=== PATIENT | male | born 1960 | race Two or more races ===

== ENCOUNTER → 2018-11-13 | Outpatient (CLI) | payer BC ==
[2018-11-13 17:44] LABS: HGB 15.6 gm/dL (13.0-17.5); MCH 31.5 pg (25.0-35.0); MCHC 31.8 g/dL (31.0-37.0); MCV 99.1 fL (80.0-100.0); Mean Platelet Volume 7.4; Platelet Count 319 k/uL (150-450); RBC 4.94 m/uL (4.30-5.90); RDW 13.3 % (11.5-15.5); WBC 10.3 k/uL (3.8-10.6)
== END | disposition home or self-care (01) ==
LOC: LABPAT 17:22
PROVIDERS: ATTEND Internal Medicine Clinical Cardiac Electrophysiology
DX: Z01.812 Encounter for preprocedural laboratory examination (principal); I48.0 Paroxysmal atrial fibrillation
CPT/HCPCS: 80051; 82565; 82947; 84520; 85027

== ENCOUNTER 2018-11-24 08:44 | Observation (INO) | payer BC ==
[~2018-11-24 08:44] MED LIST: LACTATED RINGERS 1,000 ML IV SCH; SODIUM CHLORIDE 0.9% 1,000 ML IV SCH
[2018-11-24] MEDS ORDERED: SUCCINYLCHOLINE CHLORIDE 100 MG/5 ML SYR IV ONE (10:22)
[2018-11-24] MEDS ORDERED: MIDAZOLAM 2 MG/2 ML VIAL ONE (10:22)
[2018-11-24] MEDS ORDERED: ePHEDrine SULFATE/0.9% NACL/PF 50 MG/5 ML SYRINGE IV ONE (10:22)
[2018-11-24] MEDS ORDERED: PROTAMINE SULFATE 10 MG/ML 5 ML VIAL IV ONE (10:22)
[2018-11-24] MEDS ORDERED: LIDOCAINE 1% INJ 10MG/ML (20 ML MDV) ONE (10:22)
[2018-11-24] MEDS ORDERED: PHENYLEPHRINE-0.9% NACL SYG 1 MG/10 ML SYRINGE ONE (10:22)
[2018-11-24] MEDS ORDERED: fentaNYL (PF) 50 MCG/ML 2 ML AMP ONE (10:22)
[2018-11-24] MEDS ORDERED: PROPOFOL 10 MG/ML 20 ML VIAL IV ONE (10:22)
[2018-11-24] MEDS ORDERED: HEPARIN SODIUM,PORCINE 5,000 UNIT/ML 1 ML VIAL ONE (10:22)
[2018-11-24] MEDS ORDERED: SODIUM CHLORIDE 0.9% 1,000 ML IV ONE (10:49)
[2018-11-24] MEDS ORDERED: LIDOCAINE 1% INJ 10MG/ML (20 ML MDV) SQ ONE (11:11)
[2018-11-24] MEDS ORDERED: HEPARIN SOD,PORK IN 0.45% NACL 25,000 UNIT in 0.45% NACL 1 250ML.BAG IV ONE (11:13)
[2018-11-24] MEDS ORDERED: LACTATED RINGERS 1,000 ML IV ONE (13:30)
[2018-11-24] MEDS ORDERED: HYDROcodone/APAP 5-325MG 1 EACH TAB PO PRN (13:33)
[2018-11-24] MEDS ORDERED: ACETAMINOPHEN TAB 325 MG TAB PO PRN (13:33)
[2018-11-24] MEDS ORDERED: IOPAMIDOL-370 100ML BTL INJ ONE (13:38)
--- NOTE | 2018-11-24 13:52 | P.PCN ---
Preoperative Diagnosis: Diagnosis Atrial fibrillation, symptomatic, refractory to therapy, refractory to flecainide Persistent atrial fibrillation Result Successful pulmonary vein isolation of all veins using cryo-ablation Complete entrance block in all 4 veins confirmed No evidence for phrenic nerve injury Ablation of the left atrial roof, roofline Esophageal deflection YES Residual rapid atrial tachycardia, organized, cycle length 171 ms following successful pulmonary vein isolation and roofline Electrical cardioversion with a synchronized shock across the chest YES Procedure details Patient was brought to the EP lab in a fasting state. Written informed consent was obtained prior to the procedure. Procedure performed under general anesthesia After initial muscle relaxant use, muscle relaxants were not given thereafter in order to assess phrenic nerve during procedure. Patient prepped and draped as per protocol Full cryo-set up with standard preparation of the cryoablation tools done. Femoral Venous access obtained on the right and left groins Venous and arterial Sheaths placed. Diagnostic catheters for the high right atrium, phrenic nerve stimulation and pacing, His bundle, RV and coronary sinus placed Intracardiac echo catheter placed. Long sheath placed in the right atrium Left and right transseptal catheterization performed under intracardiac echo guidance. Intravenous heparin with aCT above 300 Later, catheter positioning and balloon positioning in the left atrium, under intracardiac echo guidance Baseline measurements QRS 91 ms QT 373 ms Patient came in atrial fibrillation. CS electrograms were disorganized. Rapid tachycardia in the left atrium outside the pulmonary veins Following successful isolation of all 4 pulmonary veins as well as left atrial roof there was old immunization to a rapid tachycardia with a cycle length of about 171 ms Transseptal catheterization performed RA pressure 6/11/13 LA pressure 26/12/19 Transseptal catheterization performed with standard sheath. The cryoablation sheath was then placed with an over the wire exchange without any acute complications. All 4 pulmonary veins were isolated in the following sequence: Left superior followed by left inferior followed by right superior followed by right inferior The cryo-ablation balloon was placed at the os of each vein 1.5 mL of IV dye was injected to confirm an occluded vein Goal during cryoablation was to achieve complete occlusion of the pulmonary vein , achieve -30C at 30 seconds and achieve -40C at 60 seconds and a time to affect of less than 60-90 seconds, . If not the balloon was repositioned to obtain this result After completion of Cryoblation with durations from 180-240 seconds, entrance block was confirmed with the Attain circular catheter in a roving fashion around the antrum of the pulmonary veins Phrenic nerve pacing was performed from the SVC, right innominate vein area and diaphragm voltage was monitored. Diaphragmatic contractions were also monitored manually for strength of contraction. Parameter goals for each cryo freeze -30 C by 30 seconds -40 degrees C by 60 seconds Minimum between minus 40-55C Thaw time greater than 10 seconds Balloon visualized by intracardiac echo The esophagus was intubated. Esophageal Temperature monitoring with a CIRCA catheter formed. Esophageal deflection for hypothermia of the esophagus below 32C Large, and left pulmonary venous os Left superior pulmonary vein 2 cryo lesions 3 minutes followed by 2 minutes Complete isolation of the left superior pulmonary vein in less than 60 seconds with the prescribed lesion The second cryo lesion was given because this was a very large vein with a very large, common ostium Left inferior pulmonary vein Cryoablation 2 cryo lesions given 3 minutes followed by 2 minutes. Complete isolation of the pulmonary vein Right superior pulmonary vein, during phrenic nerve pacing Cryoablation of 3 minutes, 100 seconds and 95 seconds to completely isolate the pulmonary vein at the ostium 2 additional cryo lesions of 90 seconds each in the roof, between the right superior and left superior veins Right inferior pulmonary vein, during phrenic nerve pacing 3 minute cryoablation with deflection of the esophagus The previous cryoablation lesion was aborted in 39 seconds because of a rapid drop in esophageal temperatures At the end of the procedure the Achieve catheter was once again used to check for entrance block Phrenic nerve stimulation was performed to confirm diaphragmatic stimulation the end of the procedure Cine fluoroscopy was performed at the very end of the procedure to confirm movement of both diaphragms with inspiration and expiration At the end of the procedure the patient was extubated Heparin was reversed Venous sheaths were removed and hemostasis assured Procedures performed (PVI - CRYO Ablation) Comprehensive diagnostic EP study CS pacing and recording Left and right transseptal catheterization Catheter the mapping of the tachycardia (NOT 3D mapping) Intracardiac echocardiography Pulmonary vein isolation with transseptal and comprehensive EPS, 75161 Additional left-sided atrial ablation, 78398 Electrical cardioversion with a synchronized shock across the chest 76672 Anesthesia: GETA
[2018-11-24] MEDS ORDERED: ACETAMINOPHEN IV (For NPO) 1,000 MG in EMPTY BAG 1 BAG IVPB ONE (14:00)
[2018-11-24] MEDS ORDERED: PANTOPRAZOLE 40 MG TABLET PO SCH (14:00)
[2018-11-24 15:11] VITALS: BMI 29.1
[2018-11-24] MEDS ORDERED: MORPHINE SULFATE 4 MG/ML SYRINGE IVP STA (15:32)
[2018-11-24] MEDS ORDERED: ONDANSETRON 4 MG/2 ML VIAL IVP PRN (18:03)
[2018-11-24] MEDS: COLCHICINE 0.6 MG EACH PO SCH (19:54)
[2018-11-24] MEDS: APIXABAN 5 MG TAB PO SCH (19:54)
[2018-11-24] MEDS: FLECAINIDE 50 MG TAB PO SCH (19:54)
[2018-11-25 03:49] VITALS: TEMP 98.1
[2018-11-25 07:28] VITALS: RESP 18
[2018-11-25] MEDS: FLECAINIDE 50 MG TAB PO SCH (07:43)
[2018-11-25] MEDS: APIXABAN 5 MG TAB PO SCH (07:43)
[2018-11-25] MEDS: COLCHICINE 0.6 MG EACH PO SCH (07:44)
[2018-11-25] MEDS ORDERED: DILTIAZEM CD 120 MG CAP.ER.24H PO SCH (09:00)
--- NOTE | 2018-11-25 10:17 | P.DS ---
Providers Date of admission: 11/24/18 22:59 Attending physician: Santosh Bautista Primary care physician: Devang Villar [facility] Course: Patient is doing well. Exam ablating in the hallways as well as in his room. I removed his sutures and examined his groins. He has minimal tenderness in the groins minimal swelling and no bruits on either side and is ambulating comfortably without any pain No chest discomfort dizziness lightheadedness or palpitations Twelve-lead ECG shows sinus rhythm normal ST segments Blood pressure 116/72 mmHg Normal heart sounds Normal breath sounds Impression Persistent atrial fibrillation status post successful isolation of all 4 pulmonary veins Electrical cardioversion for atrial tachycardia Suggest Stop metoprolol. Patient is intolerant to metoprolol Continue diltiazem long-acting Continue flecainide 100 mg twice daily Follow Dr. Olivarez within a week Continue anticoagulation Plan - Discharge Summary Discharge Rx Participant: No New Discharge Prescriptions: New Flecainide [Tambocor] 100 mg PO Q12HR #180 tab Discontinued Metoprolol Succinate [Toprol Xl] 25 mg PO BID No Action Apixaban [Eliquis] 5 mg PO BID Esomeprazole Magnesium [NexIUM 24Hr] 20 mg PO Q48H Diltiazem HCl [Cardizem] 120 mg PO QAM Discharge Medication List Apixaban [Eliquis] 5 mg PO BID 11/20/18 [History] Diltiazem HCl [Cardizem] 120 mg PO QAM 11/20/18 [History] Esomeprazole Magnesium [NexIUM 24Hr] 20 mg PO Q48H 11/20/18 [History] Flecainide [Tambocor] 100 mg PO Q12HR #180 tab 11/25/18 [Rx] Follow up Appointment(s)/Referral(s): Shonna Olivarez MD [STAFF PHYSICIAN] - 1 Week Activity/Diet/Wound Care/Special Instructions: Post EP study - Ablation instructions 1. Keep access sites dry for 2 days. 2. No heavy lifting or straining for 2 days. 3. Avoid bending the hips repeatedly for 2 days. 4. You may go up and down stairs slowly Call if the following is noted 1. Bleeding, increasing swelling or pain at the access sites. 2. Increasing chest discomfort, especially upon taking a deep breath. 3. Increasing shortness of breath, at rest or with exertion. 4. Undue cough / phlegm 5. Difficulty or pain while swallowing. 6. Pain or change in color in the extremities. 7. Fever, chills, rigors. 8. Increasing headache or neurologic symptoms. 9. Dizziness, fainting, palpitations Continue ELIQUIS 5 mg twice daily Flecainide 100 mg twice daily Continue diltiazem Stop metoprolol
[2018-11-25 11:37] VITALS: BP 129/85; PULSE 101
== END 2018-11-25 14:34 | disposition home or self-care (01) ==
LOC: CATHEP 08:44 → 1SOBS 13:27 → CATHEP 23:22
PROVIDERS: ADMIT Internal Medicine Clinical Cardiac Electrophysiology; ATTEND Internal Medicine Clinical Cardiac Electrophysiology
DX: I48.1 Persistent atrial fibrillation (principal); Z79.01 Long term (current) use of anticoagulants; Z79.899 Other long term (current) drug therapy; K21.9 Gastro-esophageal reflux disease without esophagitis; I47.1 Supraventricular tachycardia
CPT/HCPCS: 85347; 93662; 93609; 93656; 92960; G0378 ×2; C1769 ×4; C1894 ×3; C1730 ×2; C1759; C1893; C1733; C1766; J2250; J2720; J2270; J1644 ×2; J2405; J2001; J3010; J0131; J2370; J0330; J2704; Q9967

== ENCOUNTER → 2019-01-29 | Outpatient (CLI) | payer BC ==
[2019-01-29 17:31] LABS: Basophils % (A) 1 %; Eosinophils # (A) 0.3 k/uL (0-0.7); Eosinophils % (A) 3 %; HCT 46.2 % (39.0-53.0); HGB 14.9 gm/dL (13.0-17.5); Lymphocytes # (A) 3.6 k/uL (1.0-4.8); Lymphocytes % (A) 44 %; MCH 29.7 pg (25.0-35.0); MCHC 32.4 g/dL (31.0-37.0); MCV 91.8 fL (80.0-100.0); Monocytes # (A) 0.7 k/uL (0-1.0); Monocytes % (A) 9 %; Neutrophils # (A) 3.4 k/uL (1.3-7.7); Neutrophils % (A) 41 %; Platelet Count 279 k/uL (150-450); RBC 5.03 m/uL (4.30-5.90); RDW 14.5 % (11.5-15.5); WBC 8.3 k/uL (3.8-10.6)
[2019-01-29 17:42] LABS: Potassium 4.7 mmol/L (3.5-5.1)
== END | disposition home or self-care (01) ==
LOC: LABPAT 16:29
PROVIDERS: ATTEND Internal Medicine Clinical Cardiac Electrophysiology
DX: Z01.812 Encounter for preprocedural laboratory examination (principal); I48.1 Persistent atrial fibrillation; I48.3 Typical atrial flutter
CPT/HCPCS: 80051; 82565; 82947; 84520; 85025

== ENCOUNTER 2019-02-08 10:25 | Day surgery (SDC) | payer BC ==
[2019-02-08] MEDS: SODIUM CHLORIDE 0.9% 1,000 ML IV SCH (10:38)
[2019-02-08] MEDS ORDERED: fentaNYL (PF) 50 MCG/ML 2 ML AMP ONE (12:47)
[2019-02-08] MEDS ORDERED: PHENYLEPHRINE-0.9% NACL SYG 1 MG/10 ML SYRINGE ONE (12:47)
[2019-02-08] MEDS ORDERED: GLYCOPYRROLATE 0.2 MG/ML 2 ML VIAL ONE (12:47)
[2019-02-08] MEDS ORDERED: PROPOFOL 10 MG/ML 20 ML VIAL IV ONE (12:47)
[2019-02-08] MEDS ORDERED: ROCURONIUM BROMIDE 10 MG/ML 10 ML VIAL IV ONE (12:47)
[2019-02-08] MEDS ORDERED: NEOSTIGMINE 1 MG/ML 10 ML VIAL ONE (12:47)
[2019-02-08] MEDS ORDERED: ISOPROTERENOL 250 MCG/1.25 ML SYR IV ONE (12:47)
[2019-02-08] MEDS ORDERED: SUCCINYLCHOLINE CHLORIDE 100 MG/5 ML SYR IV ONE (12:47)
[2019-02-08] MEDS ORDERED: LIDOCAINE 1% INJ 10MG/ML (20 ML MDV) ONE (12:47)
[2019-02-08] MEDS ORDERED: MIDAZOLAM 2 MG/2 ML VIAL ONE (12:47)
[2019-02-08] MEDS ORDERED: LIDOCAINE 1% INJ 10MG/ML (20 ML MDV) SQ ONE (13:15)
[2019-02-08] MEDS ORDERED: HEPARIN SODIUM (1,000 UNIT/ML) 1,000 UNIT in SODIUM CHLORIDE 0.9% 1,000 ML IRRIGATION ONE (13:30)
[2019-02-08] MEDS ORDERED: SODIUM CHLORIDE 0.9% 500 ML 500 ML IV ONE (13:48)
[2019-02-08] MEDS ORDERED: SODIUM CHLORIDE 0.9% 250 ML IV ONE (15:08)
[2019-02-08] MEDS ORDERED: ACETAMINOPHEN TAB 325 MG TAB PO PRN (15:23)
[2019-02-08] MEDS ORDERED: HYDROcodone/APAP 5-325MG 1 EACH TAB PO PRN (15:23)
[2019-02-08] MEDS ORDERED: ACETAMINOPHEN IV (For NPO) 1,000 MG in EMPTY BAG 1 BAG IVPB ONE (16:00)
[2019-02-08 18:43] VITALS: BMI 29.0
--- NOTE | 2019-02-08 18:50 | PCN ---
PROCEDURE NOTE Alan Howe is a 58-year-old male patient who has a history of paroxysmal atrial fibrillation as well as paroxysmal typical atrial flutter symptomatic. He is brought in for an atrial flutter ablation. DESCRIPTION OF PROCEDURE: The patient is brought to the EP lab in a fasting state. Written informed consent was obtained prior to the procedure. The right and left groins were prepped and draped as per protocol. Procedure was performed under general anesthesia. Venous sheaths were placed in the right and left femoral veins and via these diagnostic mapping ablation catheters were placed an intracardiac echo catheter was placed. Sinus cycle length was 855 milliseconds. The AH interval 176 milliseconds, QRS 90 milliseconds QT 386 milliseconds. AH interval 82 milliseconds, HV interval 43 milliseconds. Sinus node recovery times of 600, 500, and 400 milliseconds were 1173, 1323 and 1083 milliseconds. Corresponding corrected sinus node recovery times were within normal limits. There was no evidence for slow pathway conduction in the baseline state. AV node Wenckebach block 90 milliseconds. No delta waves. Atrial ERP from the coronary sinus 600/260 milliseconds. On Isuprel was started AV node Wenckebach block improved to 260 milliseconds. Slow pathway was noted at a paced cycle length of 290 milliseconds but no echo beats were noted with atrial extra stimulation. VA Wenckebach block 370 milliseconds. VAERP 500/330 milliseconds. 3D electronic mapping of the right atrial isthmus was performed. The patient had a 4 cm long isthmus with gradual large shallow pouch towards the IVC was reached. There was an eustachian ridge noted. RF ablation was applied from the tricuspid anulus down to the eustachian ridge and over to the cephalad portion of the IVC. A complete line of block was made and then this line was interrogated. With differential pacing, bidirectional block was proven. Anatomically the line was complete. Then the intracardiac echo catheter was then placed in the right ventricle. Once again, there was no pericardial effusion noted. Catheters were all removed at the end of the procedure. RESULT: Diagnostic EP study revealin. Normal sinus node function. 2. Slow pathway conduction noted only on Isuprel. 3. No evidence for any echo beats or SVT. 4. No delta waves. 5. Successful RF ablation of typical atrial flutter with confirmed bidirectional block with differential pacing. PLAN: Continue anticoagulation. Continue other cardiac medications as before. MMODL / IJN: [id number] /
[2019-02-08] MEDS: DILTIAZEM CD 120 MG CAP.ER.24H PO SCH (20:13)
[2019-02-08] MEDS: METOPROLOL TARTRATE 12.5 MG TAB PO SCH (20:50)
[2019-02-08] MEDS: APIXABAN 5 MG TAB PO SCH (20:50)
[2019-02-08] MEDS: FLECAINIDE 50 MG TAB PO SCH (20:50)
[2019-02-09 03:46] VITALS: RESP 18
[2019-02-09] MEDS: SODIUM CHLORIDE 0.9% 1,000 ML IV SCH (04:10)
[2019-02-09] MEDS: DILTIAZEM CD 120 MG CAP.ER.24H PO SCH (07:56)
[2019-02-09] MEDS: FLECAINIDE 50 MG TAB PO SCH (07:56)
[2019-02-09] MEDS: APIXABAN 5 MG TAB PO SCH (07:56)
[2019-02-09] MEDS: METOPROLOL TARTRATE 12.5 MG TAB PO SCH ×2 (07:56→13:04)
[2019-02-09] MEDS ORDERED: PANTOPRAZOLE 40 MG TABLET PO SCH (09:00)
[2019-02-09 11:37] VITALS: BP 150/79; PULSE 68; TEMP 98.2
--- NOTE | 2019-02-09 13:28 | P.DS ---
Providers Attending physician: Santosh Bautista Primary care physician: Devang Villar [facility] Course: Patient is doing well. He is ablating in the hallways. No chest discomfort dizziness lightheadedness or palpitations His rhythm is normal His twelve-lead ECG is normal no ST segment elevation no atrial fibrillation no atrial flutter On examination blood pressure is 138/87 mmHg heart rate is in the 70s No JVD no lower extremity edema groins of healed well Abdomen soft nontender Extremities warm no edema Normal heart sounds normal S1 normal S2 line breath sounds are clear no rhonchi no crackles Impression typical atrial flutter with RVR, symptomatic Status post atrial flutter ablation No other arrhythmias inducible. Patient has an antegrade slow pathway but no arrhythmias were inducible on and off Isuprel Suggest Continue current medications continue anticoagulation and follow with Dr. Olivarez in a week or 2 Plan - Discharge Summary Discharge Rx Participant: No New Discharge Prescriptions: Continue Apixaban [Eliquis] 5 mg PO BID Esomeprazole Magnesium [NexIUM 24Hr] 20 mg PO Q48H Diltiazem HCl [Cardizem] 120 mg PO QAM Flecainide [Tambocor] 50 mg PO Q12HR Unknown- Metoprolol 12.5 mg PO QID Discharge Medication List Apixaban [Eliquis] 5 mg PO BID 11/20/18 [History] Diltiazem HCl [Cardizem] 120 mg PO QAM 11/20/18 [History] Esomeprazole Magnesium [NexIUM 24Hr] 20 mg PO Q48H 11/20/18 [History] Flecainide [Tambocor] 50 mg PO Q12HR 02/03/19 [History] Unknown- Metoprolol 12.5 mg PO QID 02/03/19 [History] Follow up Appointment(s)/Referral(s): Shonna Olivarez MD [STAFF PHYSICIAN] - 02/23/19 10:00 am (Groin check within 1- 2 weeks) Activity/Diet/Wound Care/Special Instructions: Post EP study - Ablation instructions 1. Keep access sites dry for 2 days. 2. No heavy lifting or straining for 2 days. 3. Avoid bending the hips repeatedly for 2 days. 4. You may go up and down stairs slowly Call if the following is noted 1. Bleeding, increasing swelling or pain at the access sites. 2. Increasing chest discomfort, especially upon taking a deep breath. 3. Increasing shortness of breath, at rest or with exertion. 4. Undue cough / phlegm 5. Difficulty or pain while swallowing. 6. Pain or change in color in the extremities. 7. Fever, chills, rigors. 8. Increasing headache or neurologic symptoms. 9. Dizziness, fainting, palpitations No changes in medications No changes in medications and continue anticoagulation Discharge Disposition: HOME SELF-CARE
== END 2019-02-09 13:10 | disposition home or self-care (01) ==
LOC: CATHEP 10:25 → 1SOBS 14:50 → CATHEP 02-09 13:10
PROVIDERS: ATTEND Internal Medicine Clinical Cardiac Electrophysiology
DX: I48.3 Typical atrial flutter (principal); I48.0 Paroxysmal atrial fibrillation; Z79.01 Long term (current) use of anticoagulants; Z88.0 Allergy status to penicillin; Z79.899 Other long term (current) drug therapy
CPT/HCPCS: 93623; 93662; 93613; 93653; C1894; C1769 ×2; C1759; C1893; C1732; C1730; J2250; J2710; J2001; J3010; J1644; J0131; J2370; J0330; J2704

== ENCOUNTER 2019-10-04 09:38 | Day surgery (SDC) | payer BC ==
[2019-09-30 16:24] VITALS: BMI 28.9
[~2019-10-04 09:38] MED LIST changes: +LIDOCAINE 1% 20 ML VIAL (10MG/ML) FOR IV START INTRADERMA PRN; -SODIUM CHLORIDE 0.9% 1,000 ML IV SCH
[2019-10-04 10:32] VITALS: TEMP 98.2
[2019-10-04] MEDS ORDERED: PROPOFOL 10 MG/ML 20 ML VIAL IV ONE (11:03)
--- NOTE | 2019-10-04 11:42 | P.PCN ---
Date of Procedure: 10/04/19 Description of Procedure: BRIEF HISTORY: Patient is a 58-year-old pleasant male scheduled for an elective colonoscopy as a part of positive testing with colon guard in the outpatient setting. Denies any change in bowel habits, abdominal pain or blood per rectum. No family history of colon cancer. PROCEDURE PERFORMED: Colonoscopy with polypectomy. PREOPERATIVE DIAGNOSIS: Positive cold guard, no prior colonoscopy. ESTIMATED BLOOD LOSS: Minimal. IV sedation per Anesthesia. PROCEDURE: After informed consent was obtained, the patient, was brought into the endoscopy unit. IV sedation was administered by Anesthesia under continuous monitoring. Digital rectal examination was normal. Initially the Olympus CF-190 flexible video colonoscope was then inserted in the rectum, gradually advanced into the cecum without any difficulty. Careful examination was performed as the scope was gradually being withdrawn. Ileocecal valve and the appendiceal orifice were visualized and appeared normal. Prep was excellent. Mucosa of the cecum, ascending colon, transverse colon, descending colon, sigmoid colon, and rectum appeared normal. Flat 5 mm cecal polyp removed with cold snare polypectomy. Diminutive 3 mm hepatic flexure polyp removed with cold forcep polypectomy. Multiple small mouth diverticula in the sigmoid colon. Retroflexion was performed in the rectum and no lesions were seen, moderate internal hemorrhoids noted. The patient tolerated the procedure well. IMPRESSION: Flat cecal polyp removed with cold snare. Diminutive hepatic flexure polyp removed with cold forceps. Mild sigmoid diverticulosis. Moderate internal hemorrhoids. RECOMMENDATIONS: Findings of this examination were discussed with the patient and his family. Okay to resume diet. Await pathology from polypectomies. Anticipate repeat colonoscopy in 5 years for a history of colon polyps.
[2019-10-04 12:39] VITALS: BP 133/89; PULSE 82; RESP 16
== END 2019-10-04 12:39 | disposition home or self-care (01) ==
LOC: ORWHC2ENDO 09:38
PROVIDERS: ATTEND Internal Medicine
DX: D12.0 Benign neoplasm of cecum (principal); D12.3 Benign neoplasm of transverse colon; K57.30 Diverticulosis of large intestine without perforation or abscess without bleeding; K64.8 Other hemorrhoids; K21.9 Gastro-esophageal reflux disease without esophagitis; I48.91 Unspecified atrial fibrillation; Z79.01 Long term (current) use of anticoagulants; Z79.899 Other long term (current) drug therapy; Z88.0 Allergy status to penicillin
CPT/HCPCS: 45385; 45380; 88305; J2704

== ENCOUNTER → 2020-06-23 | Outpatient (CLI) | payer BC ==
[2020-06-23 23:59] LABS: T4, Free (Free Thyroxine) 0.9 ng/dL (0.80-1.80)
== END | disposition home or self-care (01) ==
LOC: LABWHC1 16:01
PROVIDERS: ATTEND Internal Medicine Interventional Cardiology
DX: E05.90 Thyrotoxicosis, unspecified without thyrotoxic crisis or storm (principal)
CPT/HCPCS: 36415; 84439; 84443

== ENCOUNTER → 2024-04-17 | Outpatient (CLI) | payer BC ==
[2024-04-17 12:52] LABS: Basophils # (A) 0.04 X 10*3/uL (0.00-0.10); Basophils % (A) 0.4 %; Eosinophils # (A) 0.65 X 10*3/uL (0.04-0.35); Eosinophils % (A) 7.1 %; HCT 46.1 % (39.6-50.0); HGB 14.7 g/dL (13.0-17.0); Lymphocytes # (A) 4.37 X 10*3/uL (0.90-5.00); Lymphocytes % (A) 47.9 %; MCH 30.9 pg (27.0-32.0); MCHC 31.9 g/dL (32.0-37.0); MCV 96.8 FL (80.0-97.0); Mean Platelet Volume 9.9 FL (9.5-12.2); Monocytes # (A) 0.92 X 10*3/uL (0.20-1.00); Monocytes % (A) 10.1 %; NRBC Per 100 WBC 0 X 10*3/uL (0.00-0.01); Neutrophils # (A) 3.12 X 10*3/uL (1.80-7.70); Neutrophils % (A) 34.3 %; Platelet Count 270 X 10*3/uL (140-440); RBC 4.76 X 10*6/uL (4.40-5.60); RDW 13.9 % (11.5-14.5); WBC 9.12 X 10*3/uL (4.50-10.00)
[2024-04-17 13:13] LABS: ALT 32 U/L (10-49); AST 25 U/L (14-35); Albumin/Globulin Ratio 1.33 Ratio (1.60-3.17); Alkaline Phosphatase 72 U/L (41-126); BUN/Creat Ratio 13.82 Ratio (12.00-20.00); Blood Urea Nitrogen 15.2 mg/dL (9.0-27.0); Carbon Dioxide 23.4 mmol/L (21.6-31.8); Chloride 104 mmol/L (96-109); Chol/HDL Ratio 3.14 Ratio; Glucose 104 mg/dL (70-110); LDL Cholesterol,Calculated 85.5 mg/dL (0.0-131.0); Sodium 138 mmol/L (135-145); Total Bilirubin 0.5 mg/dL (0.3-1.2)
== END | disposition home or self-care (01) ==
LOC: LABWHC1 08:23
PROVIDERS: ATTEND Nurse Practitioner Family
DX: Z12.5 Encounter for screening for malignant neoplasm of prostate (principal); E78.5 Hyperlipidemia, unspecified; R79.9 Abnormal finding of blood chemistry, unspecified
CPT/HCPCS: 36415; 80053; 80061; 83036; 84153; 84443; 85025

== ENCOUNTER → 2025-02-04 | Day surgery (SDC) | payer BC ==
[~2025-02-04] MED LIST changes: -LACTATED RINGERS 1,000 ML IV SCH; -LIDOCAINE 1% 20 ML VIAL (10MG/ML) FOR IV START INTRADERMA PRN; +PROPOFOL 10 MG/ML 20 ML VIAL IV ONE
[2025-02-04] MEDS: LACTATED RINGERS 1,000 ML IV ONE (13:56)
[2025-02-04 14:05] VITALS: TEMP 98.1
[2025-02-04] MEDS: LACTATED RINGERS 1,000 ML IV SCH (14:05)
--- NOTE | 2025-02-04 15:24 | P.PCN ---
Date of Procedure: 02/04/25 Procedure(s) Performed: BRIEF HISTORY: Patient is a 64-year-old pleasant white man scheduled for an elective colonoscopy as a part of screening for history of colon polyps. Last colonoscopy was 5 years ago and was noted to have an adenoma. PROCEDURE PERFORMED: Colonoscopy. PREOPERATIVE DIAGNOSIS: Screening for history of colon polyps. IV sedation per Anesthesia. PROCEDURE: After informed consent was obtained, the patient, was brought into the endoscopy unit. IV sedation was administered by Anesthesia under continuous monitoring. Digital rectal examination was normal. Initially the Olympus CF-160 flexible video colonoscope was then inserted in the rectum, gradually advanced into the cecum without any difficulty. Careful examination was performed as the scope was gradually being withdrawn. Ileocecal valve and the appendiceal orifice were visualized and appeared normal. Prep was fair.. Mucosa of the cecum, ascending colon, transverse colon, descending colon, sigmoid colon, and rectum appeared normal. Scattered sigmoid diverticulosis retroflexion was performed in the rectum and patent internal hemorrhoid were seen. The patient tolerated the procedure well. IMPRESSION: Normal-appearing colon from rectum to cecum with no evidence of colorectal neoplasia. Scattered sigmoid diverticulosis and grade 2 internal hemorrhoids. RECOMMENDATIONS: Findings of this examination were discussed with the patient as well as his family.. He was advised to have repeat colonoscopy in 10 years.
[2025-02-04 15:30] VITALS: RESP 16
[2025-02-04 16:23] VITALS: BP 115/76; PULSE 70
== END ==
LOC: ORWHC2ENDO 13:25
PROVIDERS: ATTEND Internal Medicine Gastroenterology
DX: Z12.11 Encounter for screening for malignant neoplasm of colon (principal); K57.30 Diverticulosis of large intestine without perforation or abscess without bleeding; K64.1 Second degree hemorrhoids; I48.91 Unspecified atrial fibrillation; K21.9 Gastro-esophageal reflux disease without esophagitis; Z79.01 Long term (current) use of anticoagulants; Z79.899 Other long term (current) drug therapy; Z86.0101 Personal history of adenomatous and serrated colon polyps
CPT/HCPCS: 45378; J2704